=== PATIENT | male | born 1990 | race African-American/Black ===

== ENCOUNTER 2021-06-28 17:38 | Emergency (ER) | payer BC, OTHER, SELFPAY ==
[2021-06-28 17:40] VITALS: BP 174/102; PULSE 75; RESP 16; TEMP 36.9; O2SAT 100
--- NOTE | 2021-06-28 17:49 | ED.DENTAL ---
HPI - Dental/Oral General Chief complaint: Dental/Oral <FABIO Nixon Last Filed: 06/28/21 18:51> Stated complaint: dental pain <FABIO Nixon Last Filed: 06/28/21 18:51> Time Seen by Provider: 06/28/21 17:47 <FABIO Nixon Last Filed: 06/28/21 18:51> Source: patient <FABIO Nixon Last Filed: 06/28/21 18:51> Mode of arrival: ambulatory <FABIO Nixon Last Filed: 06/28/21 18:51> Limitations: no limitations <FABIO Nixon Last Filed: 06/28/21 18:51> History of Present Illness HPI Narrative: Patient is a 31 y/o male who presents to the ED with c/o dental pain. Patient reports having pain in his left lower molar, #19, for the past 3 days, worsening today. He does have a known fractured tooth. He has been taking ibuprofen 800 mg at home without much relief. He has a dentist and is going to call to make an appointment tomorrow morning. Denies any facial swelling, fever, chills, nausea, vomiting, hot/cold sensitivity, sore throat. <FABIO Nixon Last Filed: 06/28/21 18:51> Related Data Allergies/adverse reactions: Allergies Allergy/AdvReac Type Severity Reaction Status Date / Time No Known Allergies Allergy Verified 06/28/21 17:49 <FABIO Nixon Last Filed: 06/28/21 18:51> Review of Systems Review of Systems: CONSTITUTIONAL: Denies fever, chills. ENT: Reports dentalgia. Denies facial swelling, sore throat, dental temperature sensitivity. GASTROINTESTINAL: Denies nausea, vomiting. <FABIO Nixon Last Filed: 06/28/21 18:51> All systems reviewed & are unremarkable except as noted in HPI and below <FABIO Nixon Last Filed: 06/28/21 18:51> [facility] Past Medical History Medical History: Medical History (Updated 05/22/22 @ 18:08 by Rocío Quiles PA-C) No pertinent past medical history <Rocío Quiles PA-C - Last Filed: 06/28/21 18:51> Surgical History Surgical History: Surgical History (Updated 06/28/21 @ 18:08 by Rocío Quiles PA-C) No pertinent past surgical history <Rocío Quiles PA-C - Last Filed: 06/28/21 18:51> Social History Social History: Social History (Updated 06/28/21 @ 18:08 by Rocío Quiles PA-C) Smoking status: Current every day smoker <Rocío Quiles PA-C - Last Filed: 06/28/21 18:51> Exam Narrative: GENERAL: Well appearing, well-nourished, non-toxic, in no acute distress. HEAD: Normocephalic, atraumatic. No facial swelling. THROAT: Pharynx clear, no erythema or exudate. MMs moist. Broken tooth at #19 in left lower molar. Mild swelling and tenderness to palpation to inner and outer gumline surrounding this tooth. No definitive abscess or fluctuance. NECK: Supple. No adenopathy, no masses. No swelling. RESPIRATORY: Airway patent, respirations nonlabored. CARDIOVASCULAR: Regular rate and rhythm without murmurs, rubs, or gallops. Radial pulses 2+ and equal bilaterally. MUSCULOSKELETAL: Moves all extremities. Strength/ROM intact without gross deformities. SKIN: Warm, dry, normal color. No rashes. NEURO: A&O X3. Speech clear. Cranial nerves II-XII grossly intact. Steady gait. No ataxic movements. PSYCHIATRIC: Appropriate mood and affect. Normal interaction. <Rocío Quiles PA-C - Last Filed: 06/28/21 18:51> Course Vital Signs Vital signs: Vital Signs Temperature 98.5 F 06/28/21 17:40 Pulse Rate 75 06/28/21 17:40 Respiratory Rate 16 06/28/21 17:40 Blood Pressure 174/102 H 06/28/21 17:40 Pulse Oximetry 100 06/28/21 17:40 Temperature 98.5 F 06/28/21 17:40 Pulse Rate 75 06/28/21 17:40 Respiratory Rate 16 05/22/22 17:40 Blood Pressure 174/102 H 06/28/21 17:40 Pulse Oximetry 100 06/28/21 17:40 <Rocío Quiles PA-C - Last Filed: 06/28/21 18:51> MDM - Dental/Oral MDM Narrative Medical decision making narrative: Patient presented to ED with dentalgia X 3 days. Pain is consistent with de
[2021-06-28] MEDS: HYDROcodone/acetaminophen (*CRX) 5-325 MG TABLET 1 TAB PO (18:15)
== END 2021-06-28 19:00 | disposition home or self-care (01) ==
PROVIDERS: Emergency Provider General Practice
DX: S02.5XXA Fracture of tooth (traumatic), initial encounter for closed fracture (principal); F17.200 Nicotine dependence, unspecified, uncomplicated; X58.XXXA Exposure to other specified factors, initial encounter
CPT/HCPCS: 99283; A9270

== ENCOUNTER 2021-07-16 09:22 | Outpatient (CLI) | payer BC, OTHER, SELFPAY ==
--- NOTE | 2021-07-16 | ECHO_ITS ---
Patient Info Name: Ricky Donis Age: 31 years : 1990 Gender: Male Ht: 65 in Wt: 220 lbs BSA: 2.18 m2 HR: 71 bpm BP: 168 / 116 mmHg Technical Quality: Good Exam Date: 07/16/2021 9:55 AM Exam Location: [facility] Patient Status: Outpatient Admit Date: 07/16/2021 Staff Ordering Physician: Bienvenido Lucas MD [place]: Miguelina Reyes RDCS Attending Provider: Bienvenido Lucas MD Referring Physician: Lance LITTLE; Exam Type: CA echo doppler color flow Study Info Indications R00.2 - Palpitations Complete two-dimensional, color flow and Doppler transthoracic echocardiogram is performed. Summary 1. Complete two-dimensional, color flow and Doppler transthoracic echocardiogram is performed. 2. Left ventricular systolic function is normal, estimated at 55-60%. 3. There is no increased left ventricular wall thickness. 4. There is mild tricuspid valve regurgitation. 5. No pulmonary hypertension, estimated pulmonary arterial systolic pressure is 27 mmHg. Left Ventricle Left ventricular chamber dimension is normal. Left ventricular systolic function is normal, estimated at 55-60%. There is no increased left ventricular wall thickness. Left ventricular septal wall motion is normal. The left ventricular diastolic function is normal. Global longitudinal strain is normal at -18 %. Right Ventricle Right ventricular chamber dimension is normal. Right ventricular systolic function is normal. Left Atria Left atrial chamber dimension is normal. Right Atria Right atrial chamber dimension is normal. Atrial Septum Intact interatrial septum visualized by color flow imaging. Aortic Valve The aortic valve is trileaflet. There is no aortic valve sclerosis. There is no aortic valve stenosis. There is no aortic valve regurgitation. Pulmonic Valve The pulmonic valve is normal. There is no pulmonic valve stenosis. There is no pulmonic regurgitation. Mitral Valve The mitral valve has normal leaflets. There is no mitral valve stenosis. There is no mitral valve regurgitation. Tricuspid Valve The tricuspid valve leaflets are normal. There is no significant tricuspid valve stenosis. There is mild tricuspid valve regurgitation. No pulmonary hypertension, estimated pulmonary arterial systolic pressure is 27 mmHg. Pericardium/Pleural The pericardium appears normal. There is no pericardial effusion. Inferior Vena Cava Normal inferior vena cava with >50% collapse upon inspiration consistent with Empty right atrial pressure, 5 mmHg. Aorta The aortic root size at the sinus of Valsalva is normal. The prox ascending aorta size is normal. Left Ventricular Outflow Tract Name Value Normal LVOT 2D LVOT Diameter 2.1 cm LVOT Doppler LVOT Peak Gradient 6 mmHg LVOT Mean Gradient 4 mmHg LVOT VTI 27 cm LVOT VTI/AV VTI Ratio 1.0 LVOT Stroke Volume 91 ml LVOT CO 6.7 l/min LVOT CI
--- NOTE | 2021-07-21 13:31 | WPDHOLTEREM ---
Holter/Event Monitor Holter/Event Monitor Date of procedure: 07/16/21 Holter/Event Procedure: 48 Hr Holter Monitor Diagnosis: Palpitations Interpretation date: 07/21/2021 Indications: Palpitations Image/Tracing Quality: A total 47 hours 59 minutes recorded. Overall quality of the study was good Finding: Underlying normal sinus rhythm with heart rate variability between 45 and 143 beats per minute with an average heart rate of 80 beats per minute. Will longest RR interval was 1.5 seconds. The AV and IV conduction systems appear to be within normal limits. There is no ventricular ectopy. There was 1 premature atrial contraction. No complex arrhythmia or heart block. Conclusion: 1. Normal sinus rhythm with average heart rate of 80 beats per minute 2. One single premature atrial contraction noted 3. No complex arrhythmia. Unremarkable Holter
== END 2021-07-16 09:23 | disposition home or self-care (01) ==
LOC: ANHCARD 09:25
PROVIDERS: PCP Emergency Medicine; Visit Provider Emergency Medicine
DX: R00.2 Palpitations (principal)
CPT/HCPCS: 93225; 93226; 93306